=== PATIENT | female | born 1995 | race Caucasian/White ===

== ENCOUNTER 2024-05-03 07:22 | Inpatient (IN) | payer OTHER, SELFPAY ==
[2024-05-03] VITALS (35 sets, daily range): BP systolic 97–152; BP diastolic 51–108; PULSE 57–120; TEMP 35.6–36.5; O2SAT 100; BMI 31.0
[2024-05-03] MEDS: lactated ringers 1,000 ML 999 ML IV (08:00)
[2024-05-03 08:03] LABS: Basophils # 0.1 10^3/uL (0.0-0.1); Basophils % 0.4 %; Eosinophils # 0.1 10^3/uL (0.0-0.8); Eosinophils % 0.8 %; Hematocrit 34.5 % (36-47); Lymphocytes # 1.9 10^3/uL (0.8-4.8); Lymphocytes % 11.9 %; Mean Corpuscular HGB Conc 34.8 g/dL (30-55); Mean Corpuscular Hemoglobin 33.3 pg (27-33); Mean Corpuscular Volume 95.8 fl (85-98); Monocytes # 1.2 10^3/uL (0.2-0.9); Monocytes % 7.8 %; Neutrophils # 12.27 10^3/uL (1.8-7.7); Neutrophils % 78.6 %; Nucleated Red Blood Cells % 0 %; Platelet Count 237 10^3/cmm (157-399); Red Cell Distribution Width 12.6 % (12.1-15.1); White Blood Count 15.59 10^3/uL (3.29-11.43)
--- NOTE | 2024-05-03 08:11 | P.HP_ITS ---
Providers/Chief Complaint 2 Admitting Physician: Charles Gonzáles MD [place] [employer] History of Present Illness Fernanda Amin is a 28 year old G2, P1 female That presents from [facility] after found to be grossly ruptured. Patient is approximately 38 weeks 5 days and has unremarkable course. Dr. Wilson was her OB provider and had to transfer due to the lack of anesthesiology at [facility]. Patient has been contract about every 5 minutes. The patient was 3 cm last check. Patient is GBS negative. Lab work was unremarkable. Patient did have MFM consult during her and advanced imaging due to a history of congenital heart disease and her first child. They were no concerns with this . Labs RPR: Negative GBS: Negative HBsAG: Negative Review of Systems 2 General: Reports: 10 or more systems reviewed and unremarkable except in HPI and below Medications/Allergies Allergies Allergy/AdvReac Type Severity Reaction Status Date / Time No Known Drug Allergies Allergy Unknown Verified 05/03/24 08:17 Vitals/I&O/Wt Last Vital Signs Pulse 77 05/03/24 08:03 BP 122/61 05/03/24 08:03 Physical Exam 2 Const: COMMON NORMALS: no acute distress, average body habitus, no limitations, healthy appearing, alert and well nourished Resp: COMMON NORMALS: normal respiratory effort, No retractions and No use of accessory muscles Cardio: COMMON NORMALS: no JVD, regular rate and regular rhythm GI: OTHER: Gravid Extremity: COMMON NORMALS: normal to inspection, full ROM, no clubbing, cyanosis or edema and no calf tenderness Neuro: COMMON NORMALS: moves all extremities and no focal motor deficits Psych: COMMON NORMALS: mental status grossly normal, cooperative and normal affect Skin: COMMON NORMALS: no rashes or lesions noted Data 05/03/24 07:35 Results Labs OB ([facility]): 2 Blood Type Pending 05/03/24 Antibody Screen Pending 05/03/24 Hct 34.5 % (36-47) L 05/03/24 Hgb 12.00 g/dL (11.27-16.99) 05/03/24 Rho(D) Type Pending 05/03/24 Plt Count 237 10^3/cmm (157-399) 05/03/24 A&P Assessment and plan (1) Term , repeat: Will proceed with routine labor management. If cervical change is not noted then we will augment labor with Pitocin. (2) Rupture of membranes with clear amniotic fluid: Attestations 2 Medical Necessity Statement*: Patient admitted for rupture of membranes in labor. Anticipate at least 1 midnight stay. Coding Level of Care Code Acute Code for Chg Fwd Diagnoses Term , repeat Z34.90 Rupture of membranes with clear amniotic fluid
--- NOTE | 2024-05-03 08:30 | P.ANESASSM_ITS ---
Pre-Anesthetic Assessment Height/Weight: Height 5 ft 7 in Weight 198 lb Pulse BP Pulse Ox 80 109/60 100 05/03/24 08:49 05/03/24 08:49 05/03/24 08:49 Preop Diagnosis: Active labor Was Beta Aaron taken within 24 hours: N/A Was Clonidine taken within 24 hours: N/A Social No alcohol and No tobacco Exam alert, oriented x 3, clear to auscultation bilaterally and regular rate & rhythm Airway Submandibular: within normal limits Cervical ROM: within normal limits Mallampati: Class II Dentition: full Anesthetic Plan ASA status: 2 Anesthesia: Regional (specify below) Other: G2, P1 in active labor. 38 weeks No issues during Labs reviewed, hemoglobin 12, platelet 237 Patient has mild asthma uses occasional inhaler Plan for epidural placement Medications/Allergies Home Medications Medication Instructions Recorded Confirmed Last Taken Type albuterol 05/03/24 05/03/24 Unknown History [id number] 1 mg 1 tab PO DAILY 05/03/24 05/03/24 Unknown History tablet Allergies Allergy/AdvReac Type Severity Reaction Status Date / Time No Known Drug Allergies Allergy Unknown Verified 05/03/24 08:17 Current Medications Generic Name Dose Route Start Last Admin Trade Name Freq PRN Reason Stop Dose Admin Lactated Ringer's 1,000 mls @ 999 mls/hr 05/03/24 07:50 05/03/24 08:00 Lactated Ringers IV 999 mls/hr .Q1H1M PRN Administration See label comments PFSH Anesthesia Female Reproductive History : 2 Data Anesthesia 05/03/24 07:35 Short CBC 05/03/24 Range/Units 07:35 WBC 15.59 H (3.29-11.43) 10^3/uL Hgb 12.00 (11.27-16.99) g/dL Hct 34.5 L (36-47) % MCV 95.8 (85-98) fl Plt Count 237 (157-399) 10^3/cmm Neut % (Auto) 78.6 % Neut # (Auto) 12.27 H (1.8-7.7) 10^3/uL Blood Bank 05/03/24 07:35 Blood Type A Positive Rho(D) Type Rh positive Antibody Screen Negative Cardiac Studies: 2 No Data to Display
[2024-05-03] MEDS: ROPivacaine syringe 100 MG/50 ML SYRINGE 10 MG EPIDURAL (08:47)
--- NOTE | 2024-05-03 08:58 | P.ANES_ITS ---
Anesthesia Procedures Procedure/Date: 05/03/24 Epidural: Time Out Performed: Yes Consents Signed: Procedure Consent Consent: requested by attending/covering physician and from patient Lumbar Level: L3-L4 Epidural position: sitting Epidural procedure: sterile prep of area, 1% lidocaine to numb the area, 18 g needle, negative for paresthesia p assed, neg for paresthesia, test dose given, 1.5% xylocaine 1:200k epi, 0.2% Ropivacaine bolus ml, placed PCEA, no systemic response, sterile dressing applied, L.U.D. no apparent complications and 0.2% Ropiavacaine @ mls/hr (10mls/hr)
[2024-05-03] MEDS: dextrose 5%-lactated ringers 1,000 ML 125 ML IV (09:00)
[2024-05-03] MEDS: oxytocin 30 UNIT/500 ML BAG 600 UNIT IV (10:18)
--- NOTE | 2024-05-03 10:30 | PM.DELIVERY ---
Delivery Note: Date of delivery: May 03, 2024 Pre-delivery diagnoses: Term intrauterine Post-delivery diagnoses: Same, viable infant male Procedure: Spontaneous vaginal delivery Delivering Physician: Dr. Charles Gonzáles Estimated blood loss (mL): 150 Pre-Delivery Course: This is a 28-year-old that presented with rupture of membranes. Patient had progressed as expected to complete dilation without any concerns or complications. Delivery: Once patient was completely dilated the patient was placed into the normal lithotomy position. Patient started pushing with contractions. After several pushes the patient delivered a viable male vaginally without any difficulty. The infant was placed on mother's abdomen and after delay the cord was clamped and cut. Ian was then delivered soon after. Review of the perineum did show a small second-degree tear. The tear was repaired with 2-0 Vicryl. At the end of the procedure patient's bleeding was controlled and uterus was firm. Post-Delivery Status: Stable A&P Assessment and plan (1) Spontaneous vaginal delivery: Proceed with routine care. Coding Level of Care Code Acute Code for Chg Fwd Diagnoses Spontaneous vaginal delivery O80
[2024-05-03] MEDS: ibuprofen 800 mg tablet PO ×2 (16:02→21:15)
[2024-05-03] MEDS: benzocaine-menthol 78 gm Canister 1 SPRAY TOPICAL (16:03)
[2024-05-03] MEDS: lanolin oint 7 gm 1 APPLIC TOPICAL (16:03)
[2024-05-03] MEDS: docusate sodium 100 mg Capsule PO (18:19)
[2024-05-03 23:13] LABS: Hematocrit 30.5 % (36-47); Mean Corpuscular HGB Conc 34.8 g/dL (30-55); Mean Platelet Volume 10.5 fL (7.4-10.4); Platelet Count 231 10^3/cmm (157-399); Red Blood Count 3.21 10^6/uL (3.85-5.65); Red Cell Distribution Width 12.6 % (12.1-15.1); White Blood Count 15.58 10^3/uL (3.29-11.43)
[2024-05-04 02:48] VITALS: BP 101/62; PULSE 83
--- NOTE | 2024-05-04 09:15 | P.DS_ITS ---
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 Dr. Gonzáles accepted the patient. She then received an epidural. She progressed to complete and had an unremarkable delivery of a healthy term infant. Her course has also been unremarkable. She has been breast-feeding well. Her pain is been well-controlled. Her bleeding has been within normal limits. Information Peripartum Data: Delivery Method: Vaginal Physical Exam Narrative: The patient is alert. She appears comfortable. Her heart has a regular rate and rhythm with no murmurs appreciated. Lungs are clear to auscultation bilaterally. Her fundus is firm and below the umbilicus. Urinary Catheter Management: [place]: Cath Placed During This Visit: yes Urinary Catheter Date of Insertion: 05/03/24 Urinary Catheter Time of Insertion: 09:15 Discharge Data Studies Completed and Pending Laboratory Results WBC 15.58 10^3/uL (3.29-11.43) H 05/03/24 23:08 RBC 3.21 10^6/uL (3.85-5.65) L 05/03/24 23:08 Hgb 10.60 g/dL (11.27-16.99) L 05/03/24 23:08 Hct 30.5 % (36-47) L 05/03/24 23:08 MCV 95.0 fl (85-98) 05/03/24 23:08 MCH 33.0 pg (27-33) 05/03/24 23:08 MCHC 34.8 g/dL (30-55) 05/03/24 23:08 RDW 12.6 % (12.1-15.1) 05/03/24 23:08 Plt Count 231 10^3/cmm (157-399) 05/03/24 23:08 MPV 10.5 fL (7.4-10.4) H 05/03/24 23:08 Neut % (Auto) 78.6 % 05/03/24 07:35 Lymph % (Auto) 11.9 % 05/03/24 07:35 [place] % (Auto) 7.8 % 05/03/24 07:35 Eos % (Auto) 0.8 % 05/03/24 07:35 Baso % (Auto) 0.4 % 05/03/24 07:35 Neut # (Auto) 12.27 10^3/uL (1.8-7.7) H 05/03/24 07:35 Lymph # (Auto) 1.9 10^3/uL (0.8-4.8) 05/03/24 07:35 [place]one # (Auto) 1.2 10^3/uL (0.2-0.9) H 05/03/24 07:35 Eos # (Auto) 0.1 10^3/uL (0.0-0.8) 05/03/24 07:35 Baso # (Auto) 0.1 10^3/uL (0.0-0.1) 05/03/24 07:35 Nucleated RBC % (auto) 0 % 05/03/24 07:35 Nucleated RBCs # 0.0 /100WBC 05/03/24 07:35 Blood Type A Positive 05/03/24 07:35 Rho(D) Type Rh positive 05/03/24 07:35 Antibody Screen Negative 05/03/24 07:35 Vitals Last Vital Signs Temp 96.1 F L 05/03/24 21:10 Pulse 83 05/04/24 02:48 BP 101/62 05/04/24 02:48 Pulse Ox 100 05/03/24 08:59 O2 Del Method Room Air 05/03/24 08:00 Results Labs OB ([facility]): Blood Type A Positive 05/03/24 Antibody Screen Negative 05/03/24 Hct 30.5 % (36-47) L 05/03/24 Hgb 10.60 g/dL (11.27-16.99) L 05/03/24 Rho(D) Type Rh positive 05/03/24 Plt Count 231 10^3/cmm (157-399) 05/03/24 Discharge Plan Discharge Patient Disposition: Home Condition: Stable Prescriptions: New ibuprofen 800 mg Tablet 800 mg PO TID Qty: 45 0RF Continued [id number]-[id number]-Af-FA 1 mg Tablet 1 tab PO DAILY albuterol inhaler Discharge Orders: Discharge Order (Routine); Ordered 05/04/24 Ordered By: Mariano Cool Referrals: Angelique Wilson MD [Referring] - 6 Weeks (The patient will contact their office on Monday.) Discharge Diet: Usual diet Discharge Activity: Limit activity as instructed Patient Instructions: Depression (DC), Opioid Safety (DC), Preeclampsia and Eclampsia After Delivery (GEN), Hemorrhage (DC), OB Discharge Report, OB Food/Drug Interaction Guide, OB Care at Home, Opioid Safety, OB Vaginal Deliveries, Abnormal Bleeding Discharge 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
[2024-05-04 09:57] VITALS: BP 103/67; PULSE 78
[2024-05-04] MEDS: PRENATAL VIT NO.130/IRON/FOLIC 1 EACH TABLET PO (09:57)
[2024-05-04] MEDS: docusate sodium 100 mg Capsule PO (09:57)
[2024-05-04] MEDS: ibuprofen 800 mg tablet PO ×2 (09:57→15:05)
[2024-05-04 15:04] VITALS: BP 108/67; PULSE 61
[2024-05-04 16:10] VITALS: BP 108/67; PULSE 61; TEMP 36.6; O2SAT 98
== END 2024-05-04 15:20 | disposition home or self-care (01) | DRG 807 ==
PROVIDERS: Admitting Provider Family Medicine; Visit Provider Family Medicine
DX: O70.1 Second degree perineal laceration during delivery (principal); Z37.0 Single live birth; Z3A.38 38 weeks gestation of pregnancy
CPT/HCPCS: 36415; 51702; 59025; 59409; 85025; 85027; 86850; 86900; 98960; J2590; J2795; J7120; J7121